=== PATIENT | female | born 1950 | race Caucasian/White ===

== ENCOUNTER → 2021-03-23 | Outpatient (CLI) | payer OTHER ==
[~2021-03-23] MED LIST: ACETAMINOPHEN325 M1 PO; ADDERALL 10 MG10 MG PO; PROZAC 10 MG CA10 MG PO
== END ==
LOC: CAT 13:44
PROVIDERS: ATTEND Ophthalmology
DX: H04.302 Unspecified dacryocystitis of left lacrimal passage (principal); J34.89 Other specified disorders of nose and nasal sinuses; J32.9 Chronic sinusitis, unspecified; M62.89 Other specified disorders of muscle